=== PATIENT | female | born 1960 | race Caucasian/White ===

== ENCOUNTER 2022-07-08 13:14 | Outpatient (CLI) | payer SELFPAY ==
[2022-07-10 18:57] LABS: Rubella IgG Ab (UVM) Positive (See Note)
== END 2022-07-08 13:15 | disposition home or self-care (01) ==
LOC: LBO 10-13 13:14
PROVIDERS: Visit Provider Nurse Practitioner Family
DX: Z02.1 Encounter for pre-employment examination (principal); Z11.59 Encounter for screening for other viral diseases
CPT/HCPCS: 36415; 86762